=== PATIENT | female | born 1930 | race Hispanic/Latino ===

== ENCOUNTER 2018-02-24 20:45 | Emergency (ER) | payer MEDICARE ==
[~2018-02-24 20:45] MED LIST: CARB100 PO; ERGO400C PO; TRAM50TA2 PO
[2018-02-24 21:19] LABS: APPEARANCE,URINE Clear (CLEAR); BILIRUBIN,URINE Negative (NEGATIVE); COLOR,URINE Yellow (YELLOW); GLUCOSE, URINE (UA) Negative (NEGATIVE); KETONES,URINE Negative (NEGATIVE); LEUKOCYTE ESTERASE ,URINE Moderate (NEGATIVE); NITRATE,URINE Negative (NEGATIVE); OCCULT BLOOD,URINE Negative (NEGATIVE); PH,URINE 7.5 (5.0-8.0); PROTEIN,URINE Negative (NEGATIVE)
[2018-02-24 21:24] LABS: BASOPHILS % (AUTO) 0.2 % (0.0-5.0); EOSINOPHILS % (AUTO) 4.4 % (0.0-8.0); HEMATOCRIT 42.9 % (36-48); LYMPHOCYTES % (AUTO) 31.8 % (21.0-51.0); MEAN CORPUSCULAR HEMOGLOBIN 33.9 pg (27.0-33.0); MEAN CORPUSCULAR HGB CONC 33.9 g/dL (32.0-36.0); MEAN CORPUSCULAR VOLUME 99.9 fL (79-99); NEUTROPHILS % (AUTO) 52.6 % (40.0-77.0); NUCLEATED RED BLOOD CELLS 0.1 % (0.0-0.19); PLATELET COUNT (AUTO) 167 K/uL (130-400); RED BLOOD CELL COUNT(AUTO) 4.29 MIL/uL (4.00-5.50); RED CELL DISTRIBUTION WIDTH 12.9 % (11.0-15.5); WHITE BLOOD COUNT (AUTO) 5.5 K/uL (4.8-10.8)
[2018-02-24 21:37] LABS: BACTERIA,URINE None Seen /HPF (None Seen); INR 1.09 (0.85-1.15); PARTIAL THROMBOPLASTIN TIME 29.8 SEC (26.3-35.5); PROTHROMBIN TIME 11.4 SEC (9.6-11.6); RBC,URINE None Seen /HPF (0-1); SQUAMOUS EPITHELIAL CELL,UR 0-2 /HPF (0-2)
[2018-02-24] MEDS ORDERED: TRAMADOL HCL 50 MG TABLET ONE (22:03)
[2018-02-24 22:39] LABS: CREATININE 0.7 mg/dL (0.5-1.5); POTASSIUM 3.8 mmol/L (3.5-5.1)
[2018-02-24 22:44] LABS: ALBUMIN 2.9 g/dL (3.5-5.0); BILIRUBIN,TOTAL 0.5 mg/dL (0.2-1.0); TOTAL PROTEIN, SERUM 7.7 g/dL (6.0-8.3)
[2018-02-24] MEDS ORDERED: CEPHALEXIN 500 MG CAPSULE ONE (23:01)
== END 2018-02-24 23:33 | disposition home or self-care (01) ==
LOC: EDH 20:45
DX: M54.5 Low back pain (principal); N39.0 Urinary tract infection, site not specified; Z90.710 Acquired absence of both cervix and uterus; Z98.890 Other specified postprocedural states; Z88.6 Allergy status to analgesic agent
CPT/HCPCS: 36415; 71045; 72131; 80053; 81001; 82150; 82550; 84484; 85025; 85610; 85730; 87088; 93005

== ENCOUNTER 2018-03-17 11:29 | Emergency (ER) | payer MEDICARE ==
[2018-03-17 12:13] LABS: EOSINOPHILS % (AUTO) 2.3 % (0.0-8.0); HEMATOCRIT 42.8 % (36-48); LYMPHOCYTES % (AUTO) 19.7 % (21.0-51.0); MEAN CORPUSCULAR HEMOGLOBIN 33.4 pg (27.0-33.0); MEAN CORPUSCULAR HGB CONC 33.4 g/dL (32.0-36.0); MEAN CORPUSCULAR VOLUME 100.1 fL (79-99); NUCLEATED RED BLOOD CELLS 0.1 % (0.0-0.19); PLATELET COUNT (AUTO) 151 K/uL (130-400); RED BLOOD CELL COUNT(AUTO) 4.28 MIL/uL (4.00-5.50); RED CELL DISTRIBUTION WIDTH 12.7 % (11.0-15.5); WHITE BLOOD COUNT (AUTO) 5.1 K/uL (4.8-10.8)
[2018-03-17 12:36] LABS: APPEARANCE,URINE Cloudy (CLEAR); BILIRUBIN,URINE Negative (NEGATIVE); COLOR,URINE Yellow (YELLOW); GLUCOSE, URINE (UA) Negative (NEGATIVE); KETONES,URINE Negative (NEGATIVE); LEUKOCYTE ESTERASE ,URINE Moderate (NEGATIVE); NITRATE,URINE Negative (NEGATIVE); OCCULT BLOOD,URINE Negative (NEGATIVE); PH,URINE 5.5 (5.0-8.0); PROTEIN,URINE Negative (NEGATIVE)
[2018-03-17 12:37] LABS: CREATININE 0.8 mg/dL (0.5-1.5); POTASSIUM 3.8 mmol/L (3.5-5.1)
[2018-03-17 12:42] LABS: BILIRUBIN,TOTAL 1.1 mg/dL (0.2-1.0); TOTAL PROTEIN, SERUM 7.9 g/dL (6.0-8.3)
[2018-03-17 13:01] LABS: BACTERIA,URINE Few /HPF (None Seen); RBC,URINE None Seen /HPF (0-1)
== END 2018-03-17 13:28 | disposition home or self-care (01) ==
LOC: EDH 11:29
DX: S06.0X0A Concussion without loss of consciousness, initial encounter (principal); I48.91 Unspecified atrial fibrillation; Z88.6 Allergy status to analgesic agent; Z90.710 Acquired absence of both cervix and uterus; Z98.890 Other specified postprocedural states; W01.198A Fall on same level from slipping, tripping and stumbling with subsequent striking against other object, initial encounter; Y93.01 Activity, walking, marching and hiking; Y92.89 Other specified places as the place of occurrence of the external cause; Y99.8 Other external cause status
CPT/HCPCS: 36415; 70450; 80053; 81001; 84484; 85025; 93005

== ENCOUNTER → 2018-08-08 | Outpatient (CLI) | payer MEDICARE ==
[~2018-08-08] MED LIST changes: +IOHEXOL-350 50ML VIAL IV ONE
== END | disposition home or self-care (01) ==
LOC: RAH 10:09
PROVIDERS: ATTEND Family Medicine
DX: G31.89 Other specified degenerative diseases of nervous system (principal); J32.0 Chronic maxillary sinusitis; R90.82 White matter disease, unspecified
CPT/HCPCS: 70470; Q9967

== ENCOUNTER 2018-09-30 04:43 | Observation (INO) | payer MEDICARE ==
[~2018-09-30] VITALS: Ht 154.9 cm; Wt 49.9 kg
[~2018-09-30 04:43] MED LIST changes: -CARB100 PO; -ERGO400C PO; -IOHEXOL-350 50ML VIAL IV ONE; +MIRA25TA PO; -TRAM50TA2 PO; +TRAZ150T79 PO
[2018-09-30 05:15] LABS: ALBUMIN 0.9 g/dL (3.5-5.0); BILIRUBIN,TOTAL 0.3 mg/dL (0.2-1.0); CREATININE 0.2 mg/dL (0.5-1.5); POTASSIUM 4.1 mmol/L (3.5-5.1); TOTAL PROTEIN, SERUM 2.6 g/dL (6.0-8.3)
[2018-09-30 05:18] LABS: MEAN CORPUSCULAR HEMOGLOBIN 33.9 pg (27.0-33.0); MEAN CORPUSCULAR HGB CONC 33.9 g/dL (32.0-36.0); NUCLEATED RED BLOOD CELLS 0.2 % (0.0-0.19); PLATELET COUNT (AUTO) 58 K/uL (130-400); RED BLOOD CELL COUNT(AUTO) 2.02 MIL/uL (4.00-5.50); RED CELL DISTRIBUTION WIDTH 12.9 % (11.0-15.5); WHITE BLOOD COUNT (AUTO) 2.7 K/uL (4.8-10.8)
[2018-09-30 05:19] LABS: APPEARANCE,URINE Clear (CLEAR); BILIRUBIN,URINE Negative (NEGATIVE); COLOR,URINE Yellow (YELLOW); GLUCOSE, URINE (UA) Negative (NEGATIVE); KETONES,URINE Negative (NEGATIVE); LEUKOCYTE ESTERASE ,URINE Small (NEGATIVE); NITRATE,URINE Negative (NEGATIVE); OCCULT BLOOD,URINE Negative (NEGATIVE); PROTEIN,URINE Negative (NEGATIVE)
[2018-09-30 05:25] LABS: HEMATOCRIT 20.2 % (36-48)
[2018-09-30 05:26] LABS: AMPHET/METH SCREEN,URINE NEGATIVE (NEGATIVE); BARBITURATE SCREEN, URINE NEGATIVE (NEGATIVE); BENZODIAZEPINES SCREEN,URINE NEGATIVE (NEGATIVE); CANNABINOID SCREEN,URINE NEGATIVE (NEGATIVE); COCAINE SCREEN,URINE NEGATIVE (NEGATIVE); OPIATE SCREEN,URINE NEGATIVE (NEGATIVE); PHENCYCLIDINE SCREEN,URINE NEGATIVE (NEGATIVE)
[2018-09-30 05:33] LABS: BACTERIA,URINE None Seen /HPF (None Seen); RBC,URINE None Seen /HPF (0-1); SQUAMOUS EPITHELIAL CELL,UR Rare /HPF (0-2); WBC,URINE 0-1 /HPF (0-1)
[2018-09-30 05:39] LABS: BAND NEUTROPHILS % (MANUAL) 1 % (0-2); BASOPHILS % (MANUAL) 1 % (0-2); EOSINOPHILS % (MANUAL) 4 % (1-6); LYMPHOCYTES % (MANUAL) 22 % (22-44); MAN.DIFF COMMENT-IMPRESSION MANUAL DIFFERENTIAL; MONOCYTES % (MANUAL) 10 % (2-9); REACTIVE LYMPHOCYTES 2 % (0-0); SEGMENTED NEUTROPHILS % 60 % (40-70)
[2018-09-30] MEDS: SODIUM CHLORIDE 0.9% 1000ML 1,000 ML IV SCH ×2 (06:29→16:29)
[2018-09-30] MEDS: CEFTRIAXONE SODIUM 1 GM IV SCH (06:30)
[2018-09-30] MEDS ORDERED: DEXTROSE 50%-WATER 50 ML DISP.SYRIN IV PRN (06:45)
[2018-09-30] MEDS ORDERED: GLUCAGON 1MG KIT 1 MG ML IM PRN (06:45)
[2018-09-30] MEDS ORDERED: CEFTRIAXONE SODIUM 1 GM ONE (06:48)
[2018-09-30] MEDS ORDERED: SODIUM CHLORIDE 0.9% 1000ML 1,000 ML IV ONE (06:49)
[2018-09-30] MEDS ORDERED: FAMOTIDINE 20MG TAB 20 MG TAB PO SCH (07:00)
[2018-09-30] MEDS ORDERED: SODIUM CHLORIDE 0.9% 250 ML IV ONE (07:16)
[2018-09-30 07:38] LABS: INR 1.53 (0.85-1.15); PARTIAL THROMBOPLASTIN TIME 77.9 SEC (26.3-35.5); PROTHROMBIN TIME 15.9 SEC (9.6-11.6)
[2018-09-30 08:30] VITALS: BP 137/60
[2018-09-30 11:00] VITALS: BP 137/73
[2018-09-30] MEDS: FAMOTIDINE 20MG TAB 20 MG TAB PO SCH ×2 (14:07→21:21)
[2018-09-30 15:14] LABS: HEMATOCRIT 38.1 % (36-48)
--- NOTE | 2018-09-30 15:18 | NUR ---
RD NOTIFICATION Primary Diagnosis: General body weakness, Anemia. Hx: Incontinence Bladder, Anemia. Current diet: Heart Healthy. BMI is 20.8; classified as normal. PO is 50-75% and has good appetite as per family. Skin is intact, no edema present. Pt has not had a bowel movement since as per family. Pts family is concerned about weight loss and asked to be re-weighed. RD notified nurse to re-weight pt. Meds: Pepcid, Glucagon, Rocephin, Dextrose. Labs: Alb .9, RG 50, WBC 2.7, HGB 6.8, HCT 20.2, MCV 100, MCH .9, PLT 58, PTT 77.9, CRE .2. RD recommends to re-weigh pt and provide stool softener when medically feasible. Change diet to Regular. Offer Ensure at all meals. Please notify RD if any other nutritional concerns arise. RD will continue to monitor. Thank you. Addendum: 09/30/18 at [address] RD Amended: Links added.
[2018-09-30 16:00] VITALS: BP 134/61
[2018-09-30] MEDS ORDERED: CEPH250C3 PO (16:16)
[2018-09-30 20:00] VITALS: BP 154/56
[2018-09-30] MEDS ORDERED: CEPHALEXIN 250 MG CAPSULE PO SCH (21:00)
[2018-09-30 23:56] VITALS: BP 156/69
[2018-10-01] MEDS: SODIUM CHLORIDE 0.9% 1000ML 1,000 ML IV SCH (02:29)
[2018-10-01 04:00] VITALS: BP 149/90
[2018-10-01] MEDS: CEFTRIAXONE SODIUM 1 GM IV SCH (05:12)
[2018-10-01 05:32] LABS: BASOPHILS % (AUTO) 1.2 % (0.0-5.0); EOSINOPHILS % (AUTO) 7.3 % (0.0-8.0); LYMPHOCYTES % (AUTO) 26.2 % (21.0-51.0); MEAN CORPUSCULAR HEMOGLOBIN 33.9 pg (27.0-33.0); MEAN CORPUSCULAR HGB CONC 34.6 g/dL (32.0-36.0); MEAN CORPUSCULAR VOLUME 97.7 fL (79-99); MONOCYTES % (AUTO) 12.2 % (3.0-13.0); NEUTROPHILS % (AUTO) 53.1 % (40.0-77.0); NUCLEATED RED BLOOD CELLS 0.1 % (0.0-0.19); PLATELET COUNT (AUTO) 113 K/uL (130-400); RED BLOOD CELL COUNT(AUTO) 3.99 MIL/uL (4.00-5.50); RED CELL DISTRIBUTION WIDTH 14.5 % (11.0-15.5); WHITE BLOOD COUNT (AUTO) 4.5 K/uL (4.8-10.8)
[2018-10-01 05:41] LABS: CREATININE 0.6 mg/dL (0.5-1.5); MAGNESIUM 1.8 mg/dL (1.80-2.40); POTASSIUM 4.3 mmol/L (3.5-5.1)
[2018-10-01 07:44] VITALS: BP 127/69
--- NOTE | 2018-10-01 07:45 | NUR ---
ASSESSMENT ENCOUNTERED PT ASLEEP BUT AROUSEABLE, A&OX3 BUT FORGETFUL. PT DENIES PAIN, SOB, NAUSEA. LEFT SHOULDER DRESSING DRY AND INTACT. PT DOES C/O TENDERNESS TO RT ORBIT AND SHOULDER BUT NO DISCOLORATION OR EDEMA PRESENT. PT IS ABLE TO TOLERATE FOODS, FLUIDS AND MEDICATION WITH NO THROAT CLEARING OR COUGH. PT IS AMBULATORY, GAIT SLOW BUT STEADY WITH 1-2 PERSON ASSIST. CALL LIGHT WITHIN REACH, FAMILY AT BEDSIDE.
[2018-10-01] MEDS ORDERED: [UNRECOGNIZED DRUG - CODE] PO (11:02)
[2018-10-01] MEDS ORDERED: VITA1TAB22 PO (11:02)
[2018-10-01] MEDS ORDERED: FERR325T22 PO (11:02)
[2018-10-01] MEDS ORDERED: FOLI0.8T PO (11:02)
--- NOTE | 2018-10-01 13:00 | NUR ---
DISCHARGE INSTRUCTIONS GIVEN, PIV REMOVED AND INTACT, DISCHARGED HOME TO FAMILY VEHICLE VIA WHEELCHAIR.
== END 2018-10-01 12:29 | disposition home or self-care (01) ==
LOC: EDH 04:43 → EDHIP 06:29 → INTOOBSV 06:29 → 4CH 08:25
PROVIDERS: ADMIT Hospitalist; ATTEND Hospitalist
DX: D62 Acute posthemorrhagic anemia (principal); D61.818 Other pancytopenia; R42 Dizziness and giddiness; E16.2 Hypoglycemia, unspecified; E43 Unspecified severe protein-calorie malnutrition; N39.0 Urinary tract infection, site not specified; R64 Cachexia; Z82.49 Family history of ischemic heart disease and other diseases of the circulatory system; Z95.0 Presence of cardiac pacemaker; Z79.899 Other long term (current) drug therapy
CPT/HCPCS: 36415 ×2; 36430; 70450; 71045; 80048; 80053; 80305; 81001; 82948; 83735; 84484; 85014; 85018; 85025 ×2; 85610; 85730; 86850; 86900; 86901; 86922; 87088; 93005; 96361; 96374; 97039; 97116; 97161; 99291; G0378 ×27; G8978; G8979; G8980; G8981; G8982; G8983; J0696 ×2; J7030 ×4; P9016